=== PATIENT | male | born 1945 | race Caucasian/White ===

== ENCOUNTER → 2017-06-05 | Outpatient (REF) | payer MEDICARE, BC ==
[2017-06-05 18:14] LABS: BASO % 0.3 % (0.0-1.0); EOS % 0.1 % (0.0-3.0); LARGE UNSTAINED CELL # 0.3 K/mm3 (0.0-0.4); LYMPH # 0.8 K/mm3 (1.5-4.5); MEAN CORPUSCULAR HEMOGLOBIN 26.4 pg (27.0-33.0); MEAN CORPUSCULAR HGB CONC 33.6 g/dl (32.0-36.5); MEAN CORPUSCULAR VOLUME 78.7 fl (80.0-96.0); MONO # 0.7 K/mm3 (0.0-0.8); MONO % 4.8 % (0.0-5.0); NEUTROPHILS # 13.7 K/mm3 (1.8-7.7); NEUTROPHILS % 87.9 % (36.0-66.0); PLATELET COUNT, AUTOMATED 307 k/mm3 (150-450); RED CELL DISTRIBUTION WIDTH 15.7 % (11.5-14.5); WHITE BLOOD COUNT 15.6 K/mm3 (4.0-10.0)
[2017-06-05 18:39] LABS: ALBUMIN 3.6 GM/DL (3.2-5.2); ALBUMIN/GLOBULIN RATIO 0.86 (1.00-1.93); ALKALINE PHOSPHATASE 110 U/L (45-117); ALT/SGPT 52 U/L (12-78); ANION GAP 11 MEQ/L (8-16); AST/SGOT 48 U/L (15-37); BILIRUBIN,TOTAL 1.1 MG/DL (0.2-1.0); BLOOD UREA NITROGEN 19 MG/DL (7-18); CALCIUM LEVEL 9.6 MG/DL (8.8-10.2); CARBON DIOXIDE LEVEL 28 MEQ/L (21-32); CHLORIDE LEVEL 96 MEQ/L (98-107); CREATININE FOR GFR 1.17 MG/DL (0.70-1.30); GLOMERULAR FILTRATION RATE > 60.0 (>42); GLUCOSE, FASTING 86 MG/DL (83-110); POTASSIUM SERUM 3.8 MEQ/L (3.5-5.1); SODIUM LEVEL 135 MEQ/L (136-145); TOTAL PROTEIN 7.8 GM/DL (6.4-8.2)
== END ==
LOC: M LABSMT 17:11
PROVIDERS: ATTEND Physician Assistant Medical
DX: R50.9 Fever, unspecified (principal)

== ENCOUNTER → 2019-05-19 | Outpatient (REF) | payer MEDICARE, BC | LOC: M LAB REF 17:01 | PROVIDERS: ATTEND Physician Assistant | DX: N30.01 Acute cystitis with hematuria (principal) ==

== ENCOUNTER → 2019-07-11 | Outpatient (REF) | payer MEDICARE, BC | LOC: M LAB REF 16:46 | PROVIDERS: ATTEND Physician Assistant | DX: N30.01 Acute cystitis with hematuria (principal) ==

== ENCOUNTER → 2019-07-14 | Outpatient (CLI) | payer MEDICARE, BC ==
[2019-07-14 18:08] LABS: BLOOD UREA NITROGEN 16 MG/DL (7-18); CREATININE FOR GFR 0.86 MG/DL (0.70-1.30); GLOMERULAR FILTRATION RATE > 60.0 (>42)
== END ==
LOC: M SMT 14:19
PROVIDERS: ATTEND Urology
DX: R31.0 Gross hematuria (principal)

== ENCOUNTER → 2019-07-14 | Outpatient (REF) | payer MEDICARE, BC ==
[2019-07-14 13:37] LABS: AMORPHOUS SEDIMENT SMALL (NEGATIVE); APPEARANCE, URINE CLEAR (CLEAR); BACTERIA, URINE AUTO NEGATIVE (NEGATIVE); BILIRUBIN, URINE AUTO NEGATIVE (NEGATIVE); BLOOD, URINE BLOOD NEGATIVE (NEGATIVE); COLOR, URINE YELLOW (YELLOW); GLUCOSE, URINE (UA) AUTO NEGATIVE (NEGATIVE); KETONE, URINE AUTO NEGATIVE (NEGATIVE); LEUKOCYTE ESTERASE, URINE AUTO NEGATIVE (NEGATIVE); MUCUS, URINE SMALL (NEGATIVE); NITRITE, URINE AUTO NEGATIVE (NEGATIVE); PROTEIN, URINE AUTO NEGATIVE (NEGATIVE); RBC, URINE AUTO 1 /HPF (0-3); SPECIFIC GRAVITY URINE AUTO 1.008 (1.002-1.035); SQUAMOUS EPITHELIAL CELL UR AU 0 /HPF (0-6); UROBILINOGEN, URINE AUTO 0.2 mg/dL (0.0-2.0); WBC, URINE AUTO 1 /HPF (0-3)
== END ==
LOC: M SMT 12:59
PROVIDERS: ATTEND Urology
DX: R31.0 Gross hematuria (principal)
CPT/HCPCS: 36415; 51798; 81001; 82565; 84520; G0463

== ENCOUNTER → 2019-07-20 | Outpatient (CLI) | payer MEDICARE, BC ==
[~2019-07-20] MED LIST: ISOVUE-370 76% 100ML VIAL (Q9967) As Ordered ONE
--- NOTE | 2019-07-20 12:04 | REP ---
REASON FOR EXAM: Gross hematuria. PRIORS: None. CONTRAST: 100 mL [id number]. The lung bases are clear. Precontrast enhanced portion of the examination shows hepatic and splenic densities to be within normal limits. There is no evidence of nephroureteral lithiasis. There are no urinary bladder calcifications. There are no choleliths. Calcifications are seen in the pancreas, likely secondary to chronic changes. Contrast enhanced portion of the exam shows the liver, gallbladder, spleen, pancreas, adrenal glands, and kidneys to be within normal limits. The abdominal aorta and para-aortic regions are within normal limits. The bowel loops and their mesenteries are within normal limits. There is no free fluid or free air. CT PELVIS: The urinary bladder wall appears thickened, although incompletely distended. CT poorly evaluates the urinary bladder. There is no free fluid or free air. There is no evidence of pelvic sidewall adenopathy. CT urography was obtained with post processing at the physician workstation. The CT urogram shows no evidence of hydronephrosis. Incomplete opacification is seen involving the proximal left ureter and mid right ureter. The source images, however, do show complete opacification of the left renal collecting system and near complete opacification of the right renal collecting system. Delayed imaging of the urinary bladder does suggest nearly circumferential urinary bladder wall thickening. Bone window technique throughout the exam shows chronic spinal degenerative changes. IMPRESSION: 1. Abnormal-appearing urinary bladder. Etiology uncertain. Cystoscopy is recommended. 2. 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 3. Calcifications seen in the pancreas, likely chronic, but with no priors for comparison, consider followup if clinically relevant. Electronically Signed by Justice Spear DO 07/20/2019 12:41 P
== END ==
LOC: M RAD 09:13
PROVIDERS: ATTEND Urology
DX: R31.0 Gross hematuria (principal)
CPT/HCPCS: 74178; Q9967